=== PATIENT | female | born 1985 | race Caucasian/White ===

== ENCOUNTER → 2019-09-02 | Outpatient (CLI) | payer OTHER ==
[2019-09-02 12:42] LABS: microscopic required? NO
[2019-09-02 13:13] LABS: PLATELET COUNT 288 x10^3mcL (130-400); RED CELL DISTRIBUTION WIDTH 12.8 % (11.5-14.5)
[2019-09-02 13:14] LABS: BASOPHIL % 0.5 % (0-2)
[2019-09-02 13:45] LABS: FREE T4 1.55 ng/dL (0.76-1.46)
[2019-09-02 13:49] LABS: ALBUMIN 3.7 g/dL (3.4-5.0); ALKALINE PHOSPHATASE 62 U/L (46-116); ALT/SGPT 19 U/L (14-59); AST/SGOT 12 U/L (15-37); BILIRUBIN TOTAL 0.4 mg/dL (0.20-1.00); CALCIUM 9.2 mg/dL (8.5-10.1); CARBON DIOXIDE 28.2 mmol/L (21-32); CHLORIDE SERUM 99 mmol/L (98-107); CREATININE SERUM 0.6 mg/dL (0.6-1.0); GFR1 > 60 mL/min; GLUCOSE SERUM 112 mg/dL (74-106); POTASSIUM SERUM 3.7 mmol/L (3.5-5.1); SODIUM SERUM 135 mmol/L (136-145)
[2019-09-02 13:57] LABS: T4(THYROXINE) 14.5 ug/dL (4.7-13.3)
[2019-09-02 13:58] LABS: TOTAL PROTEIN, SERUM 8.4 g/dL (6.4-8.2)
[2019-09-02 13:59] LABS: UA SPECIFIC GRAVITY >=1.030 (1.005-1.035); urine erythrocyte NEGATIVE (NEGATIVE)
[2019-09-03 08:08] LABS: rnp antibodies (ena) 0.6 AI (0.0-0.9); smith antibodies (ena) 2.7 AI (0.0-0.9)
== END | disposition home or self-care (01) ==
LOC: LB 12:28
DX: E03.9 Hypothyroidism, unspecified (principal)
CPT/HCPCS: 84439; 85613; 86225; 86235